=== PATIENT | female | born 1970 | race American Indian/Alaskan Native ===

== ENCOUNTER 2017-07-09 11:45 | Emergency (ER) | payer OTHER, BC ==
[2017-07-09] MEDS ORDERED: MOTRIN PO ONE (14:31)
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
[2017-07-09 15:08] VITALS: BP 106/72
== END 2017-07-09 15:42 | disposition home or self-care (01) ==
LOC: ED 11:45
DX: S13.4XXA Sprain of ligaments of cervical spine, initial encounter (principal); K21.9 Gastro-esophageal reflux disease without esophagitis; V49.49XA Driver injured in collision with other motor vehicles in traffic accident, initial encounter; Y93.9 Activity, unspecified; Y92.9 Unspecified place or not applicable; Y99.9 Unspecified external cause status
CPT/HCPCS: 99282